=== PATIENT | male | born 1955 | race African-American/Black ===

== ENCOUNTER 2018-12-08 18:06 | Inpatient (IN) ==
[2018-12-08] MEDS ORDERED: ONDANSETRON 4 MG/2 ML VIAL IV ONE (18:51)
[2018-12-08] MEDS ORDERED: MORPHINE 4 MG/1 ML VIAL IV STA (18:51)
[2018-12-08 18:58] LABS: Basophils % 0.3 % (0.0-0.8); Eosinophils # 0.1 10*3/uL (0.0-0.87); Eosinophils % 1.4 % (0.00-10.9); Hematocrit 35.4 VOL% (42.0-52.0); Immature Granulocytes % 0.7 %; Immature Granulocytes Absolute 0.04 #; Lymphocytes # 1.5 10*3/uL (1.4-4.0); Lymphocytes % 26.6 % (21.2-54.2); Mean Corpuscular HGB Conc 31.1 GM/DL (32-36); Mean Corpuscular Volume 67.9 FL (87-102); Mean Platelet Volume 10.2 FL (9.6-12.0); Monocytes % 9.7 % (1.7-12.7); Neutrophils % 61.3 % (38.7-73.9); Platelet Count 355 T/CUMM (130-400); Red Blood Count 5.21 MC/CUMM (3.8-5.5); White Blood Count 5.8 T/CUMM (4-12)
[2018-12-08 19:09] LABS: Alanine Aminotransferase 16 U/L (16-61); Alkaline Phosphatase 145 U/L (45-117); Aspartate Amino Transferase 13 U/L (0-37); Bilirubin,Total < 0.39 MG/DL (0.2-1.0); Blood Urea Nitrogen 14 MG/DL (7-18); Calcium 8.5 MG/DL (8.5-10.1); Estimated Glom Filtration Rate 110 ML/MIN; Glucose 267 MG/DL (74-106); Osmolality,Calculated 279.1 MOS/KG (273-304)
[2018-12-08] MEDS ORDERED: POTASSIUM CHLORIDE 20 MEQ/15 ML UDCUP PO ONE (20:06)
[2018-12-08] MEDS ORDERED: VANCOMYCIN INJ 1,000 MG in SODIUM CHLORIDE 0.9% 250 ML IV STA (21:24)
[2018-12-08] MEDS ORDERED: hydrALAZINE 20 MG/1 ML VIAL IV STA (21:43)
[2018-12-08] MEDS ORDERED: GLUCAGON 1 MG VIAL IM PRN (22:08)
[2018-12-08] MEDS ORDERED: DEXTROSE 50% 25 GM/50 ML VIAL IV PRN (22:08)
[2018-12-08] MEDS ORDERED: ONDANSETRON 4 MG/2 ML VIAL IV PRN (22:08)
[2018-12-08] MEDS ORDERED: diphenhydrAMINE CAP 25 MG CAPSULE PO PRN (22:08)
[2018-12-09] MEDS: SODIUM CHLORIDE 0.9% 1,000 ML IV SCH ×4 (00:36→23:29)
[2018-12-09] MEDS: MORPHINE 4 MG/1 ML VIAL IV PRN ×5 (00:36→23:27)
[2018-12-09] MEDS: PIPERACILLIN/TAZOBACTAM 3,375 MG in SODIUM CHLORIDE 0.9% 100 ML IV SCH ×3 (00:37→17:19)
[2018-12-09 02:31] LABS: Basophils % 0.6 % (0.0-0.8); Eosinophils # 0.1 10*3/uL (0.0-0.87); Eosinophils % 1.8 % (0.00-10.9); Hematocrit 34.5 VOL% (42.0-52.0); Hemoglobin 10.6 GM/DL (14.0-18.0); Immature Granulocytes % 0.4 %; Immature Granulocytes Absolute 0.02 #; Lymphocytes # 1.4 10*3/uL (1.4-4.0); Lymphocytes % 26.3 % (21.2-54.2); Mean Corpuscular HGB Conc 30.7 GM/DL (32-36); Mean Corpuscular Volume 68.3 FL (87-102); Mean Platelet Volume 9.8 FL (9.6-12.0); Monocytes % 10.8 % (1.7-12.7); Neutrophils % 60.1 % (38.7-73.9); Platelet Count 334 T/CUMM (130-400); Red Blood Count 5.05 MC/CUMM (3.8-5.5); Red Cell Distribution Width 18.5 % (9.3-17.3); White Blood Count 5.4 T/CUMM (4-12)
[2018-12-09 02:50] LABS: Alanine Aminotransferase 15 U/L (16-61); Albumin 2.8 G/DL (3.4-5.0); Alkaline Phosphatase 137 U/L (45-117); Aspartate Amino Transferase 8 U/L (0-37); Bilirubin,Total < 0.39 MG/DL (0.2-1.0); Blood Urea Nitrogen 15 MG/DL (7-18); Estimated Glom Filtration Rate 108 ML/MIN; Glucose 204 MG/DL (74-106); Osmolality,Calculated 279.8 MOS/KG (273-304); Total Protein 7.2 G/DL (6.4-8.3)
[2018-12-09 03:50] LABS: Apearance,Urine CLEAR (Clear); Bilirubin,Urine Negative (Negative); Blood, Urine Negative (Negative); Glucose,Urine (UA) >=500 mg/dL (Negative); Ketones,Urine Negative (Negative); Mucus,Urine Occasional /LPF (Occasional); Nitrite,Urine Negative (Negative); Protein,Urine 30 MG/DL; RBC,Urine 1 /HPF (0-4); Squamous Epithelial Cell,Urine Occasional /HPF (0-10); Urine Color Yellow (Yellow); Urine Specific Gravity 1.021 (1.001-1.035); Urine Urobilinogen < 2.0 EU/DL (0.2-1.0); WBC,Urine 1 /HPF (0-6)
[2018-12-09] MEDS: ACETAMINOPHEN 325 MG TABLET PO PRN (07:10)
[2018-12-09] MEDS: INSULIN REGULAR 100 UNIT/ML SUBCUT SCH ×4 (08:36→20:20)
[2018-12-09] MEDS ORDERED: ceFAZolin 1,000 MG in SYRINGE 1 EACH IV ONE (09:58)
[2018-12-09] MEDS ORDERED: PROPOFOL 200 MG/20 ML VIAL IV ONE (12:26)
[2018-12-09] MEDS ORDERED: LIDOCAINE 2% 5 ML VIAL ONE (12:26)
[2018-12-09] MEDS ORDERED: SEVOFLURANE 1 UNIT/15 MINUTE INH ONE (12:26)
[2018-12-09] MEDS ORDERED: MIDAZOLAM 2 MG/2 ML VIAL ONE (12:27)
[2018-12-09] MEDS ORDERED: PHENYLEPHRINE 1 MG/10 ML SYRINGE IV ONE (12:27)
[2018-12-09] MEDS ORDERED: fentaNYL 100 MCG/2 ML VIAL ONE (12:27)
[2018-12-09] MEDS: MEPERIDINE 25 MG/1 ML VIAL IV PRN ×2 (12:30→12:40)
[2018-12-09] MEDS ORDERED: ONDANSETRON 4 MG/2 ML VIAL ONE (12:38)
[2018-12-09] MEDS ORDERED: MEPERIDINE 25 MG/1 ML VIAL ONE ×2 (12:38→12:42)
[2018-12-09] MEDS ORDERED: PROMETHAZINE 25 MG/1 ML VIAL ONE (12:42)
[2018-12-09] MEDS ORDERED: ONDANSETRON 4 MG/2 ML VIAL IV PRN (13:26)
[2018-12-09] MEDS ORDERED: PROMETHAZINE INJ 25 MG in SODIUM CHLORIDE 0.9% 50 ML IV PRN (13:26)
[2018-12-09] MEDS: VANCOMYCIN INJ 1,750 MG in SODIUM CHLORIDE 0.9% 500 ML IV SCH (14:09)
[2018-12-09] MEDS: INSULIN GLARGINE 100 UNIT/ML SUBCUT SCH (20:20)
[2018-12-10] MEDS: PIPERACILLIN/TAZOBACTAM 3,375 MG in SODIUM CHLORIDE 0.9% 100 ML IV SCH ×3 (00:51→16:22)
[2018-12-10] MEDS: VANCOMYCIN INJ 1,750 MG in SODIUM CHLORIDE 0.9% 500 ML IV SCH ×2 (02:45→14:32)
[2018-12-10] MEDS: MORPHINE 4 MG/1 ML VIAL IV PRN ×3 (05:17→16:21)
[2018-12-10 08:19] LABS: Basophils % 0.4 % (0.0-0.8); Eosinophils # 0.1 10*3/uL (0.0-0.87); Eosinophils % 1.6 % (0.00-10.9); Hematocrit 33.1 VOL% (42.0-52.0); Hemoglobin 10.3 GM/DL (14.0-18.0); Immature Granulocytes % 0.4 %; Immature Granulocytes Absolute 0.02 #; Lymphocytes # 1.7 10*3/uL (1.4-4.0); Lymphocytes % 29.9 % (21.2-54.2); Mean Corpuscular HGB Conc 31.1 GM/DL (32-36); Mean Corpuscular Volume 68.2 FL (87-102); Mean Platelet Volume 10.2 FL (9.6-12.0); Monocytes % 7.8 % (1.7-12.7); Neutrophils % 59.9 % (38.7-73.9); Platelet Count 339 T/CUMM (130-400); Red Blood Count 4.85 MC/CUMM (3.8-5.5); Red Cell Distribution Width 18.4 % (9.3-17.3); White Blood Count 5.7 T/CUMM (4-12)
[2018-12-10 08:44] LABS: Calcium 8.3 MG/DL (8.5-10.1)
[2018-12-10] MEDS: INSULIN REGULAR 100 UNIT/ML SUBCUT SCH ×4 (09:27→20:29)
[2018-12-10] MEDS: SODIUM CHLORIDE 0.9% 1,000 ML IV SCH ×2 (09:28→16:57)
[2018-12-10] MEDS ORDERED: HYDROmorphone 2 MG/1 ML VIAL IV ONE (10:41)
[2018-12-10] MEDS: amLODIPine 10 MG TABLET PO SCH (10:48)
[2018-12-10] MEDS: METOPROLOL TARTRATE 25 MG TABLET PO SCH ×2 (10:48→20:29)
[2018-12-10] MEDS: GABAPENTIN 300 MG CAPSULE PO SCH ×2 (14:32→20:29)
[2018-12-10] MEDS: INSULIN GLARGINE 100 UNIT/ML SUBCUT SCH (20:29)
[2018-12-10] MEDS: ACETAMINOPHEN 325 MG TABLET PO PRN (20:48)
[2018-12-11] MEDS: SODIUM CHLORIDE 0.9% 1,000 ML IV SCH ×3 (00:35→14:37)
[2018-12-11] MEDS: PIPERACILLIN/TAZOBACTAM 3,375 MG in SODIUM CHLORIDE 0.9% 100 ML IV SCH ×3 (00:35→16:11)
[2018-12-11] MEDS: MORPHINE 4 MG/1 ML VIAL IV PRN ×4 (00:36→13:43)
[2018-12-11] MEDS: VANCOMYCIN INJ 1,750 MG in SODIUM CHLORIDE 0.9% 500 ML IV SCH ×2 (02:47→14:01)
[2018-12-11 05:02] LABS: Basophils % 0.6 % (0.0-0.8); Eosinophils # 0.1 10*3/uL (0.0-0.87); Eosinophils % 2.6 % (0.00-10.9); Hematocrit 34.7 VOL% (42.0-52.0); Hemoglobin 10.5 GM/DL (14.0-18.0); Immature Granulocytes % 0.4 %; Immature Granulocytes Absolute 0.02 #; Lymphocytes # 1.8 10*3/uL (1.4-4.0); Lymphocytes % 32.8 % (21.2-54.2); Mean Corpuscular HGB Conc 30.3 GM/DL (32-36); Mean Corpuscular Volume 68.6 FL (87-102); Mean Platelet Volume 10.2 FL (9.6-12.0); Monocytes % 8.7 % (1.7-12.7); Neutrophils % 54.9 % (38.7-73.9); Platelet Count 342 T/CUMM (130-400); Red Blood Count 5.06 MC/CUMM (3.8-5.5); Red Cell Distribution Width 18.6 % (9.3-17.3); White Blood Count 5.4 T/CUMM (4-12)
[2018-12-11 05:14] LABS: Calcium 8.7 MG/DL (8.5-10.1); Osmolality,Calculated 280.4 MOS/KG (273-304)
[2018-12-11 05:21] LABS: % Iron Saturation 7.8 % (18-50)
[2018-12-11] MEDS: oxyCODONE/ACETAMINOPHEN 5-325 MG TABLET PO PRN ×3 (07:57→22:29)
[2018-12-11] MEDS: FLUoxetine 20 MG CAPSULE PO SCH (08:52)
[2018-12-11] MEDS: METOPROLOL TARTRATE 25 MG TABLET PO SCH (08:53)
[2018-12-11] MEDS: LOSARTAN 50 MG TABLET PO SCH (08:53)
[2018-12-11] MEDS: amLODIPine 10 MG TABLET PO SCH (08:53)
[2018-12-11] MEDS: GABAPENTIN 300 MG CAPSULE PO SCH ×3 (08:53→20:58)
[2018-12-11] MEDS: ATORVASTATIN 10 MG TABLET PO SCH (08:53)
[2018-12-11] MEDS: buPROPion XL 150 MG TABLET PO SCH (08:54)
[2018-12-11] MEDS: INSULIN REGULAR 100 UNIT/ML SUBCUT SCH ×4 (09:30→20:58)
[2018-12-11] MEDS: METOPROLOL TARTRATE 50 MG TABLET PO SCH ×2 (09:52→20:58)
[2018-12-11] MEDS: hydrALAZINE 20 MG/1 ML VIAL IV PRN (10:40)
[2018-12-11] MEDS: metFORMIN 500 MG TABLET PO SCH (18:01)
[2018-12-11] MEDS: FERROUS SULFATE 325 MG TABLET PO SCH (20:58)
[2018-12-11] MEDS: INSULIN GLARGINE 100 UNIT/ML SUBCUT SCH (20:58)
[2018-12-12] MEDS: PIPERACILLIN/TAZOBACTAM 3,375 MG in SODIUM CHLORIDE 0.9% 100 ML IV SCH ×2 (00:16→09:07)
[2018-12-12] MEDS: VANCOMYCIN INJ 1,750 MG in SODIUM CHLORIDE 0.9% 500 ML IV SCH (02:07)
[2018-12-12 04:28] LABS: Basophils % 0.3 % (0.0-0.8); Eosinophils # 0.2 10*3/uL (0.0-0.87); Eosinophils % 3.3 % (0.00-10.9); Hematocrit 34.7 VOL% (42.0-52.0); Hemoglobin 10.5 GM/DL (14.0-18.0); Immature Granulocytes % 0.3 %; Immature Granulocytes Absolute 0.02 #; Lymphocytes # 1.4 10*3/uL (1.4-4.0); Lymphocytes % 23.3 % (21.2-54.2); Mean Corpuscular HGB Conc 30.3 GM/DL (32-36); Mean Corpuscular Volume 69.1 FL (87-102); Monocytes % 9.2 % (1.7-12.7); Neutrophils % 63.6 % (38.7-73.9); Platelet Count 347 T/CUMM (130-400); Red Blood Count 5.02 MC/CUMM (3.8-5.5); Red Cell Distribution Width 18.6 % (9.3-17.3); White Blood Count 6.1 T/CUMM (4-12)
[2018-12-12] MEDS: oxyCODONE/ACETAMINOPHEN 5-325 MG TABLET PO PRN ×3 (04:32→19:33)
[2018-12-12 04:45] LABS: Calcium 8.9 MG/DL (8.5-10.1); Osmolality,Calculated 282.3 MOS/KG (273-304)
[2018-12-12 08:04] LABS: Calcium 8.6 MG/DL (8.5-10.1); Osmolality,Calculated 279.3 MOS/KG (273-304)
[2018-12-12] MEDS: buPROPion XL 150 MG TABLET PO SCH (08:55)
[2018-12-12] MEDS: METOPROLOL TARTRATE 50 MG TABLET PO SCH ×2 (08:56→21:29)
[2018-12-12] MEDS: metFORMIN 500 MG TABLET PO SCH (08:56)
[2018-12-12] MEDS: ATORVASTATIN 10 MG TABLET PO SCH (08:56)
[2018-12-12] MEDS: amLODIPine 10 MG TABLET PO SCH (08:57)
[2018-12-12] MEDS: FERROUS SULFATE 325 MG TABLET PO SCH ×2 (08:57→21:29)
[2018-12-12] MEDS: LOSARTAN 50 MG TABLET PO SCH (08:57)
[2018-12-12] MEDS: GABAPENTIN 300 MG CAPSULE PO SCH ×3 (08:58→21:29)
[2018-12-12] MEDS: ACETAMINOPHEN 325 MG TABLET PO PRN ×2 (08:58→15:44)
[2018-12-12] MEDS: FLUoxetine 20 MG CAPSULE PO SCH (09:02)
[2018-12-12] MEDS: SODIUM CHLORIDE 0.9% 1,000 ML IV SCH ×3 (09:04→21:35)
[2018-12-12] MEDS: INSULIN REGULAR 100 UNIT/ML SUBCUT SCH ×4 (09:05→21:29)
[2018-12-12] MEDS: CLINDAMYCIN 300 MG CAPSULE PO SCH ×3 (11:39→23:18)
[2018-12-12] MEDS: hydrALAZINE 10 MG TABLET PO SCH ×2 (15:44→21:29)
[2018-12-12 20:45] LABS: Apearance,Urine CLEAR (Clear); Bilirubin,Urine Negative (Negative); Blood, Urine Negative (Negative); Glucose,Urine (UA) 50 mg/dL (Negative); Ketones,Urine Negative (Negative); Nitrite,Urine Negative (Negative); Protein,Urine Negative; RBC,Urine 1 /HPF (0-4); Squamous Epithelial Cell,Urine Occasional /HPF (0-10); Urine Color Straw (Yellow); Urine Specific Gravity 1.006 (1.001-1.035); Urine Urobilinogen < 2.0 EU/DL (0.2-1.0); WBC,Urine 1 /HPF (0-6)
[2018-12-12] MEDS: INSULIN GLARGINE 100 UNIT/ML SUBCUT SCH (21:30)
[2018-12-13] MEDS: oxyCODONE/ACETAMINOPHEN 5-325 MG TABLET PO PRN ×2 (02:47→11:43)
[2018-12-13] MEDS: SODIUM CHLORIDE 0.9% 1,000 ML IV SCH ×4 (02:50→18:43)
[2018-12-13 05:02] LABS: Calcium 8.9 MG/DL (8.5-10.1); Ferritin 15.3 ng/ml (26-388); Osmolality,Calculated 286.4 MOS/KG (273-304)
[2018-12-13] MEDS: CLINDAMYCIN 300 MG CAPSULE PO SCH ×4 (06:30→23:18)
[2018-12-13] MEDS: MORPHINE 4 MG/1 ML VIAL IV PRN ×3 (08:52→23:17)
[2018-12-13] MEDS: amLODIPine 10 MG TABLET PO SCH (08:55)
[2018-12-13] MEDS: FERROUS SULFATE 325 MG TABLET PO SCH ×2 (08:55→20:44)
[2018-12-13] MEDS: METOPROLOL TARTRATE 50 MG TABLET PO SCH ×2 (08:55→20:44)
[2018-12-13] MEDS: FLUoxetine 20 MG CAPSULE PO SCH (08:55)
[2018-12-13] MEDS: hydrALAZINE 10 MG TABLET PO SCH ×3 (08:55→20:44)
[2018-12-13] MEDS: buPROPion XL 150 MG TABLET PO SCH (08:55)
[2018-12-13] MEDS: INSULIN REGULAR 100 UNIT/ML SUBCUT SCH ×4 (08:55→20:45)
[2018-12-13] MEDS: GABAPENTIN 300 MG CAPSULE PO SCH ×3 (08:55→20:45)
[2018-12-13] MEDS: ATORVASTATIN 10 MG TABLET PO SCH (08:55)
[2018-12-13] MEDS ORDERED: INSULIN GLARGINE 100 UNIT/ML SUBCUT SCH (11:06)
[2018-12-14] MEDS: MORPHINE 4 MG/1 ML VIAL IV PRN ×5 (02:50→18:15)
[2018-12-14] MEDS: SODIUM CHLORIDE 0.9% 1,000 ML IV SCH ×4 (03:27→17:59)
[2018-12-14] MEDS: ACETAMINOPHEN 325 MG TABLET PO PRN (03:46)
[2018-12-14 05:09] LABS: Calcium 9.1 MG/DL (8.5-10.1); Osmolality,Calculated 285.5 MOS/KG (273-304)
[2018-12-14] MEDS: CLINDAMYCIN 300 MG CAPSULE PO SCH ×3 (06:00→17:50)
[2018-12-14] MEDS: ATORVASTATIN 10 MG TABLET PO SCH (08:31)
[2018-12-14] MEDS: hydrALAZINE 10 MG TABLET PO SCH (08:31)
[2018-12-14] MEDS: GABAPENTIN 300 MG CAPSULE PO SCH ×3 (08:31→20:48)
[2018-12-14] MEDS: buPROPion XL 150 MG TABLET PO SCH (08:31)
[2018-12-14] MEDS: FERROUS SULFATE 325 MG TABLET PO SCH ×2 (08:31→20:48)
[2018-12-14] MEDS: FLUoxetine 20 MG CAPSULE PO SCH (08:32)
[2018-12-14] MEDS: METOPROLOL TARTRATE 50 MG TABLET PO SCH ×2 (08:32→20:48)
[2018-12-14] MEDS: amLODIPine 10 MG TABLET PO SCH (08:32)
[2018-12-14] MEDS: INSULIN REGULAR 100 UNIT/ML SUBCUT SCH ×4 (08:45→20:48)
[2018-12-14] MEDS: PANTOPRAZOLE 40 MG TABLET PO SCH (09:47)
[2018-12-14] MEDS ORDERED: ALUM/MAG/SIMETH/LIDO VISC 1:1 30 ML BOTTLE PO ONE (12:17)
[2018-12-14] MEDS: INSULIN GLARGINE 100 UNIT/ML SUBCUT SCH (20:48)
[2018-12-14] MEDS: oxyCODONE/ACETAMINOPHEN 5-325 MG TABLET PO PRN (20:49)
[2018-12-15] MEDS: CLINDAMYCIN 300 MG CAPSULE PO SCH ×5 (00:57→23:23)
[2018-12-15] MEDS: SODIUM CHLORIDE 0.9% 1,000 ML IV SCH ×3 (01:30→20:20)
[2018-12-15 04:41] LABS: Basophils % 0.3 % (0.0-0.8); Eosinophils # 0.1 10*3/uL (0.0-0.87); Eosinophils % 1.1 % (0.00-10.9); Hematocrit 33.6 VOL% (42.0-52.0); Hemoglobin 10.3 GM/DL (14.0-18.0); Immature Granulocytes % 0.2 %; Immature Granulocytes Absolute 0.01 #; Lymphocytes # 1.1 10*3/uL (1.4-4.0); Mean Corpuscular HGB Conc 30.7 GM/DL (32-36); Mean Corpuscular Volume 67.5 FL (87-102); Mean Platelet Volume 10.2 FL (9.6-12.0); Monocytes % 9.3 % (1.7-12.7); Neutrophils % 71.1 % (38.7-73.9); Platelet Count 310 T/CUMM (130-400); Red Blood Count 4.98 MC/CUMM (3.8-5.5); Red Cell Distribution Width 18.8 % (9.3-17.3); White Blood Count 6.3 T/CUMM (4-12)
[2018-12-15] MEDS: MORPHINE 4 MG/1 ML VIAL IV PRN ×2 (04:56→23:18)
[2018-12-15 05:11] LABS: Calcium 9.1 MG/DL (8.5-10.1); Osmolality,Calculated 290.1 MOS/KG (273-304)
[2018-12-15] MEDS: INSULIN REGULAR 100 UNIT/ML SUBCUT SCH ×4 (08:44→21:24)
[2018-12-15] MEDS: oxyCODONE/ACETAMINOPHEN 5-325 MG TABLET PO PRN ×3 (08:45→20:26)
[2018-12-15] MEDS: PANTOPRAZOLE 40 MG TABLET PO SCH (08:45)
[2018-12-15] MEDS: FLUoxetine 20 MG CAPSULE PO SCH (08:45)
[2018-12-15] MEDS: amLODIPine 10 MG TABLET PO SCH (08:45)
[2018-12-15] MEDS: METOPROLOL TARTRATE 50 MG TABLET PO SCH ×2 (08:46→20:21)
[2018-12-15] MEDS: GABAPENTIN 300 MG CAPSULE PO SCH ×3 (08:46→20:21)
[2018-12-15] MEDS: FERROUS SULFATE 325 MG TABLET PO SCH ×2 (08:46→20:21)
[2018-12-15] MEDS: buPROPion XL 150 MG TABLET PO SCH (08:46)
[2018-12-15] MEDS: ATORVASTATIN 10 MG TABLET PO SCH (08:46)
[2018-12-15] MEDS: TAMSULOSIN 0.4 MG CAPSULE PO SCH (10:46)
[2018-12-15] MEDS: INSULIN GLARGINE 100 UNIT/ML SUBCUT SCH (20:21)
[2018-12-16] MEDS: SODIUM CHLORIDE 0.9% 1,000 ML IV SCH ×2 (03:51→13:19)
[2018-12-16] MEDS: CLINDAMYCIN 300 MG CAPSULE PO SCH ×4 (05:19→23:08)
[2018-12-16] MEDS: oxyCODONE/ACETAMINOPHEN 5-325 MG TABLET PO PRN ×2 (05:19→16:47)
[2018-12-16 05:43] LABS: Calcium 8.6 MG/DL (8.5-10.1); Osmolality,Calculated 281.4 MOS/KG (273-304)
[2018-12-16] MEDS: MORPHINE 4 MG/1 ML VIAL IV PRN (09:06)
[2018-12-16] MEDS: amLODIPine 10 MG TABLET PO SCH (09:19)
[2018-12-16] MEDS: METOPROLOL TARTRATE 50 MG TABLET PO SCH ×2 (09:20→22:10)
[2018-12-16] MEDS: PANTOPRAZOLE 40 MG TABLET PO SCH (09:20)
[2018-12-16] MEDS: buPROPion XL 150 MG TABLET PO SCH (09:20)
[2018-12-16] MEDS: GABAPENTIN 300 MG CAPSULE PO SCH ×3 (09:20→22:10)
[2018-12-16] MEDS: ATORVASTATIN 10 MG TABLET PO SCH (09:20)
[2018-12-16] MEDS: FERROUS SULFATE 325 MG TABLET PO SCH ×2 (09:20→22:10)
[2018-12-16] MEDS: TAMSULOSIN 0.4 MG CAPSULE PO SCH (09:21)
[2018-12-16] MEDS: INSULIN REGULAR 100 UNIT/ML SUBCUT SCH ×4 (09:51→22:10)
[2018-12-16] MEDS: FLUoxetine 20 MG CAPSULE PO SCH (10:03)
[2018-12-16] MEDS: ACETAMINOPHEN 325 MG TABLET PO PRN ×2 (12:45→22:09)
[2018-12-16] MEDS: INSULIN GLARGINE 100 UNIT/ML SUBCUT SCH (22:10)
[2018-12-17] MEDS: MORPHINE 4 MG/1 ML VIAL IV PRN ×2 (03:31→09:06)
[2018-12-17] MEDS: hydrALAZINE 20 MG/1 ML VIAL IV PRN (04:49)
[2018-12-17 05:39] LABS: Basophils % 0.4 % (0.0-0.8); Eosinophils % 0.4 % (0.00-10.9); Hemoglobin 10.2 GM/DL (14.0-18.0); Immature Granulocytes Absolute 0.07 #; Lymphocytes # 0.9 10*3/uL (1.4-4.0); Lymphocytes % 12.4 % (21.2-54.2); Mean Corpuscular HGB Conc 31.9 GM/DL (32-36); Mean Corpuscular Volume 66.3 FL (87-102); Monocytes % 7.3 % (1.7-12.7); Neutrophils % 78.5 % (38.7-73.9); Platelet Count 296 T/CUMM (130-400); Red Blood Count 4.83 MC/CUMM (3.8-5.5); Red Cell Distribution Width 18.6 % (9.3-17.3); White Blood Count 7.3 T/CUMM (4-12)
[2018-12-17 06:01] LABS: Calcium 8.7 MG/DL (8.5-10.1); Osmolality,Calculated 280.1 MOS/KG (273-304)
[2018-12-17] MEDS: oxyCODONE/ACETAMINOPHEN 5-325 MG TABLET PO PRN ×2 (06:12→22:04)
[2018-12-17] MEDS: CLINDAMYCIN 300 MG CAPSULE PO SCH ×4 (06:13→23:52)
[2018-12-17] MEDS: INSULIN REGULAR 100 UNIT/ML SUBCUT SCH ×4 (09:06→21:57)
[2018-12-17] MEDS: FLUoxetine 20 MG CAPSULE PO SCH (09:07)
[2018-12-17] MEDS: buPROPion XL 150 MG TABLET PO SCH (09:07)
[2018-12-17] MEDS: PANTOPRAZOLE 40 MG TABLET PO SCH (09:08)
[2018-12-17] MEDS: TAMSULOSIN 0.4 MG CAPSULE PO SCH (09:08)
[2018-12-17] MEDS: amLODIPine 10 MG TABLET PO SCH (09:08)
[2018-12-17] MEDS: GABAPENTIN 300 MG CAPSULE PO SCH ×3 (09:08→21:55)
[2018-12-17] MEDS: FERROUS SULFATE 325 MG TABLET PO SCH ×2 (09:08→21:55)
[2018-12-17] MEDS: METOPROLOL TARTRATE 50 MG TABLET PO SCH (09:08)
[2018-12-17] MEDS: ATORVASTATIN 10 MG TABLET PO SCH (09:08)
[2018-12-17] MEDS ORDERED: METOPROLOL TARTRATE 100 MG TABLET PO SCH (10:01)
[2018-12-17] MEDS: ERYTHROMYCIN 0.5% OPHT OINT 3.5 GM TUBE RIGHT EYE SCH ×3 (14:33→21:55)
[2018-12-17] MEDS: METOPROLOL TARTRATE 100 MG TABLET PO SCH (21:56)
[2018-12-17] MEDS: INSULIN GLARGINE 100 UNIT/ML SUBCUT SCH (21:57)
[2018-12-18] MEDS: CLINDAMYCIN 300 MG CAPSULE PO SCH ×4 (06:19→23:04)
[2018-12-18] MEDS: oxyCODONE/ACETAMINOPHEN 5-325 MG TABLET PO PRN ×4 (06:23→22:51)
[2018-12-18 07:13] LABS: Basophils % 0.3 % (0.0-0.8); Eosinophils # 0.1 10*3/uL (0.0-0.87); Eosinophils % 1.4 % (0.00-10.9); Hematocrit 33.2 VOL% (42.0-52.0); Hemoglobin 10.3 GM/DL (14.0-18.0); Immature Granulocytes % 0.6 %; Immature Granulocytes Absolute 0.04 #; Lymphocytes # 1.1 10*3/uL (1.4-4.0); Lymphocytes % 16.3 % (21.2-54.2); Mean Corpuscular Volume 67.5 FL (87-102); Monocytes % 10.3 % (1.7-12.7); Neutrophils % 71.1 % (38.7-73.9); Platelet Count 307 T/CUMM (130-400); Red Blood Count 4.92 MC/CUMM (3.8-5.5); Red Cell Distribution Width 19.1 % (9.3-17.3); White Blood Count 6.4 T/CUMM (4-12)
[2018-12-18 07:41] LABS: Alanine Aminotransferase 12 U/L (16-61); Albumin 2.7 G/DL (3.4-5.0); Alkaline Phosphatase 100 U/L (45-117); Aspartate Amino Transferase 12 U/L (0-37); Bilirubin,Total < 0.39 MG/DL (0.2-1.0); Blood Urea Nitrogen 24 MG/DL (7-18); Estimated Glom Filtration Rate 42 ML/MIN; Glucose 130 MG/DL (74-106); Osmolality,Calculated 280.7 MOS/KG (273-304); Total Protein 8.1 G/DL (6.4-8.3)
[2018-12-18] MEDS: GABAPENTIN 300 MG CAPSULE PO SCH ×3 (09:13→21:51)
[2018-12-18] MEDS: amLODIPine 10 MG TABLET PO SCH (09:13)
[2018-12-18] MEDS: FLUoxetine 20 MG CAPSULE PO SCH (09:13)
[2018-12-18] MEDS: PANTOPRAZOLE 40 MG TABLET PO SCH (09:13)
[2018-12-18] MEDS: TAMSULOSIN 0.4 MG CAPSULE PO SCH (09:14)
[2018-12-18] MEDS: ERYTHROMYCIN 0.5% OPHT OINT 3.5 GM TUBE RIGHT EYE SCH ×4 (09:14→21:50)
[2018-12-18] MEDS: METOPROLOL TARTRATE 100 MG TABLET PO SCH ×2 (09:14→21:51)
[2018-12-18] MEDS: ATORVASTATIN 10 MG TABLET PO SCH (09:14)
[2018-12-18] MEDS: buPROPion XL 150 MG TABLET PO SCH (09:14)
[2018-12-18] MEDS: FERROUS SULFATE 325 MG TABLET PO SCH ×2 (09:14→21:51)
[2018-12-18] MEDS: INSULIN REGULAR 100 UNIT/ML SUBCUT SCH ×4 (09:21→21:51)
[2018-12-18] MEDS ORDERED: MAGNESIUM HYDROXIDE SUSP 30 ML UDCUP PO ONE (11:20)
[2018-12-18] MEDS: INSULIN GLARGINE 100 UNIT/ML SUBCUT SCH (21:52)
[2018-12-19] MEDS: CLINDAMYCIN 300 MG CAPSULE PO SCH ×3 (05:34→18:36)
[2018-12-19] MEDS: oxyCODONE/ACETAMINOPHEN 5-325 MG TABLET PO PRN ×4 (05:45→21:44)
[2018-12-19 06:10] LABS: Calcium 8.7 MG/DL (8.5-10.1); Osmolality,Calculated 277.2 MOS/KG (273-304)
[2018-12-19] MEDS: buPROPion XL 150 MG TABLET PO SCH (09:56)
[2018-12-19] MEDS: ERYTHROMYCIN 0.5% OPHT OINT 3.5 GM TUBE RIGHT EYE SCH ×4 (09:57→21:53)
[2018-12-19] MEDS: FLUoxetine 20 MG CAPSULE PO SCH (09:57)
[2018-12-19] MEDS: METOPROLOL TARTRATE 100 MG TABLET PO SCH ×2 (09:58→21:43)
[2018-12-19] MEDS: GABAPENTIN 300 MG CAPSULE PO SCH ×3 (09:58→21:44)
[2018-12-19] MEDS: FERROUS SULFATE 325 MG TABLET PO SCH ×2 (09:58→21:43)
[2018-12-19] MEDS: TAMSULOSIN 0.4 MG CAPSULE PO SCH (09:58)
[2018-12-19] MEDS: amLODIPine 10 MG TABLET PO SCH (09:58)
[2018-12-19] MEDS: PANTOPRAZOLE 40 MG TABLET PO SCH (09:58)
[2018-12-19] MEDS: ATORVASTATIN 10 MG TABLET PO SCH (10:01)
[2018-12-19] MEDS: INSULIN REGULAR 100 UNIT/ML SUBCUT SCH ×4 (10:05→21:49)
[2018-12-19] MEDS: INSULIN GLARGINE 100 UNIT/ML SUBCUT SCH (21:47)
[2018-12-20 07:17] LABS: Alanine Aminotransferase 10 U/L (16-61); Albumin 2.8 G/DL (3.4-5.0); Alkaline Phosphatase 95 U/L (45-117); Aspartate Amino Transferase 11 U/L (0-37); Bilirubin,Total < 0.39 MG/DL (0.2-1.0); Blood Urea Nitrogen 24 MG/DL (7-18); Calcium 8.6 MG/DL (8.5-10.1); Estimated Glom Filtration Rate 42 ML/MIN; Glucose 141 MG/DL (74-106); Total Protein 7.3 G/DL (6.4-8.3)
[2018-12-20 07:22] LABS: Risk Ratio 4.6; VLDL CHOLESTEROL 29.8 MG/DL
[2018-12-20] MEDS ORDERED: ALUM/MAG/SIMETH/LIDO VISC 1:1 30 ML BOTTLE PO ONE (08:54)
[2018-12-20] MEDS: oxyCODONE/ACETAMINOPHEN 5-325 MG TABLET PO PRN ×3 (10:05→21:55)
[2018-12-20] MEDS: ERYTHROMYCIN 0.5% OPHT OINT 3.5 GM TUBE RIGHT EYE SCH ×4 (10:05→21:58)
[2018-12-20] MEDS: buPROPion XL 150 MG TABLET PO SCH (10:06)
[2018-12-20] MEDS: amLODIPine 10 MG TABLET PO SCH (10:06)
[2018-12-20] MEDS: FERROUS SULFATE 325 MG TABLET PO SCH ×2 (10:06→21:54)
[2018-12-20] MEDS: ATORVASTATIN 10 MG TABLET PO SCH (10:06)
[2018-12-20] MEDS: FLUoxetine 20 MG CAPSULE PO SCH (10:06)
[2018-12-20] MEDS: PANTOPRAZOLE 40 MG TABLET PO SCH (10:06)
[2018-12-20] MEDS: GABAPENTIN 300 MG CAPSULE PO SCH ×3 (10:06→21:55)
[2018-12-20] MEDS: METOPROLOL TARTRATE 100 MG TABLET PO SCH ×2 (10:07→21:54)
[2018-12-20] MEDS: INSULIN REGULAR 100 UNIT/ML SUBCUT SCH ×4 (10:07→21:52)
[2018-12-20] MEDS: TAMSULOSIN 0.4 MG CAPSULE PO SCH ×2 (10:07→21:54)
[2018-12-20] MEDS: INSULIN GLARGINE 100 UNIT/ML SUBCUT SCH (21:51)
[2018-12-21] MEDS: oxyCODONE/ACETAMINOPHEN 5-325 MG TABLET PO PRN ×2 (06:20→13:28)
[2018-12-21 07:46] LABS: Basophils % 0.4 % (0.0-0.8); Eosinophils # 0.1 10*3/uL (0.0-0.87); Eosinophils % 0.9 % (0.00-10.9); Hematocrit 32.7 VOL% (42.0-52.0); Hemoglobin 10.2 GM/DL (14.0-18.0); Immature Granulocytes % 0.5 %; Immature Granulocytes Absolute 0.04 #; Lymphocytes # 0.9 10*3/uL (1.4-4.0); Lymphocytes % 11.5 % (21.2-54.2); Mean Corpuscular HGB Conc 31.2 GM/DL (32-36); Mean Corpuscular Volume 66.7 FL (87-102); Mean Platelet Volume 9.9 FL (9.6-12.0); Monocytes % 8.1 % (1.7-12.7); Neutrophils % 78.6 % (38.7-73.9); Platelet Count 363 T/CUMM (130-400); Red Cell Distribution Width 18.8 % (9.3-17.3); White Blood Count 7.7 T/CUMM (4-12)
[2018-12-21 08:02] LABS: Alanine Aminotransferase 12 U/L (16-61); Albumin 2.7 G/DL (3.4-5.0); Alkaline Phosphatase 95 U/L (45-117); Aspartate Amino Transferase 14 U/L (0-37); Bilirubin,Total < 0.39 MG/DL (0.2-1.0); Blood Urea Nitrogen 25 MG/DL (7-18); Calcium 8.8 MG/DL (8.5-10.1); Estimated Glom Filtration Rate 50 ML/MIN; Glucose 98 MG/DL (74-106); Total Protein 8.1 G/DL (6.4-8.3)
[2018-12-21] MEDS: FERROUS SULFATE 325 MG TABLET PO SCH (09:10)
[2018-12-21] MEDS: INSULIN REGULAR 100 UNIT/ML SUBCUT SCH ×2 (09:10→13:25)
[2018-12-21] MEDS: FLUoxetine 20 MG CAPSULE PO SCH (09:10)
[2018-12-21] MEDS: GABAPENTIN 300 MG CAPSULE PO SCH (09:10)
[2018-12-21] MEDS: amLODIPine 10 MG TABLET PO SCH (09:10)
[2018-12-21] MEDS: PANTOPRAZOLE 40 MG TABLET PO SCH (09:10)
[2018-12-21] MEDS: TAMSULOSIN 0.4 MG CAPSULE PO SCH (09:10)
[2018-12-21] MEDS: buPROPion XL 150 MG TABLET PO SCH (09:10)
[2018-12-21] MEDS: METOPROLOL TARTRATE 100 MG TABLET PO SCH (09:10)
[2018-12-21] MEDS: ATORVASTATIN 10 MG TABLET PO SCH (09:10)
[2018-12-21] MEDS: ERYTHROMYCIN 0.5% OPHT OINT 3.5 GM TUBE RIGHT EYE SCH ×2 (09:11→13:26)
[2018-12-21] MEDS: POTASSIUM CHLORIDE 20 MEQ TABLET PO SCH ×2 (10:01→13:26)
[2018-12-21 13:52] VITALS: BP 147/82
== END 2018-12-21 14:59 | disposition home health service (06) | DRG 951 ==
LOC: EDBD → EDUNIT# → N.ED 18:06 → N.EDINP 18:06 → SUATTDRO 22:08 → N.3E 22:55 → SUATTDRO 12-12 13:24
PROVIDERS: ADMIT Family Medicine; ATTEND Internal Medicine Cardiovascular Disease